=== PATIENT | female | born 1975 | race Caucasian/White ===

== ENCOUNTER → 2019-12-31 | Outpatient (CLI) | payer OTHER | LOC: RAD 07:54 | PROVIDERS: ATTEND Nurse Practitioner Family | DX: Z12.31 Encounter for screening mammogram for malignant neoplasm of breast (principal) | CPT/HCPCS: 77063; 77067 ==

== ENCOUNTER → 2020-01-24 | Outpatient (CLI) | payer OTHER ==
--- NOTE | 2020-01-24 10:51 | Diagnostic Imaging Report ---
EXAMINATION: Unilateral diagnostic right mammogram INDICATION: Annual screening mammogram. The recent screening mammogram performed on 12/31/2019 noted a density in the lower medial aspect of the right breast at mid depth. The compression views of this area show that the density in question is less conspicuous. Furthermore this finding is not well visualized on the true lateral view. I suspect that this density is related to fibroglandular tissue alone. Even so, I would recommend that ultrasound be performed for further study. IMPRESSION: Ultrasound would be recommended for further evaluation of the inferomedial aspect of the right breast. ACR BI-RADS Category 0: Incomplete. (Needs additional imaging evaluation). Result letter will be mailed to the patient. Note: At least 10% of breast cancer is not imaged by mammography. Dictated by: Dictated on workstation # [id number]
--- NOTE | 2020-01-24 11:03 | Diagnostic Imaging Report ---
EXAMINATION: Limited right breast ultrasound. INDICATION: Abnormal mammogram The screening mammogram performed on 12/31/2019 noted a neodensity in the lower medial aspect of the right breast. The diagnostic mammogram performed prior to this study failed to show any sign of malignancy. On this study there is no discrete solid or cystic mass evident. In the area of concern. I do suspect the density seen on mammogram was related to fibroglandular tissue alone. Even so, a short-term (6 month) follow-up mammogram would be recommended for continued evaluation. IMPRESSION: There is no evidence for malignancy. Recommendations as above. ACR BI-RADS Category 3: Probably benign findings. Dictated by: Dictated on workstation # [id number]
== END ==
LOC: RAD 09:29
PROVIDERS: ATTEND Nurse Practitioner Family
DX: R92.2 Inconclusive mammogram (principal)
CPT/HCPCS: 76642; 77065; G0279

== ENCOUNTER → 2020-05-09 | Outpatient (CLI) | payer OTHER ==
--- NOTE | 2020-05-09 15:29 | Diagnostic Imaging Report ---
PROCEDURE: CT head without contrast. TECHNIQUE: Multiple contiguous axial images were obtained through the brain without the use of intravenous contrast. Auto Exposure Controls were utilized during the CT exam to meet ALARA standards for radiation dose reduction. INDICATION: Dizziness. COMPARISON: No prior studies are available for comparison. FINDINGS: The ventricles and sulci are within normal limits. No sulcal effacement or midline shift is identified. No acute intra-axial or extra-axial hemorrhage is detected. Cisterns are patent. Visualized paranasal sinuses are clear. IMPRESSION: No acute intracranial process is detected. Dictated by: Dictated on workstation # [id number]
== END ==
LOC: RAD 14:45
PROVIDERS: ATTEND Nurse Practitioner Family
DX: G44.201 Tension-type headache, unspecified, intractable (principal)
CPT/HCPCS: 70450

== ENCOUNTER → 2020-07-21 | Outpatient (CLI) | payer OTHER ==
--- NOTE | 2020-07-21 14:13 | Diagnostic Imaging Report ---
INDICATION: Right breast density. Patient presents for a 6 month followup. COMPARISON: Correlation is made with the prior mammograms from 12/31/2019 and 02/23/2018. TECHNIQUE: Unilateral right 2-D and 3-D diagnostic mammography was performed. FINDINGS: The right breast remains heterogeneously dense, limiting sensitivity of mammography. The density in the medial right breast on the CC view appears stable. The density appears less prominent on the MLO and ML views inferiorly. No new mass is seen. No malignant appearing microcalcifications are seen. The right axilla is unremarkable. IMPRESSION: Stable right mammogram. The density in the medial right breast appears stable and again likely represents fibroglandular tissue. Even so, a followup right mammogram in 6 months is recommended to show continued stability. ACR BI-RADS Category 3: Probably benign findings. Result letter will be mailed to the patient. Note: At least 10% of breast cancer is not imaged by mammography. Dictated by: Dictated on workstation # [id number]
== END ==
LOC: RAD 13:20
PROVIDERS: ATTEND Nurse Practitioner Family
DX: R92.2 Inconclusive mammogram (principal)
CPT/HCPCS: 77065; G0279

== ENCOUNTER → 2020-09-10 | Outpatient (CLI) | payer OTHER ==
--- NOTE | 2020-09-10 17:12 | Diagnostic Imaging Report ---
PROCEDURE: MR imaging cervical spine without contrast. TECHNIQUE: Multiplanar, multisequence MR imaging of the cervical spine was performed without contrast. INDICATION: Neck pain. Right shoulder and arm pain and numbness. FINDINGS: There is mild straightening demonstrated of the cervical lordosis. Alignment appears normal. There are normal relationships of the craniocervical junction. There are normal relationships of the lateral masses of C1 and C2. Facets appear normally aligned. There is a benign hemangioma within T2. There are no marrow signal changes present to suggest an acute osseous injury or suspicious marrow-replacing lesion. Visualized intracranial contents are unremarkable. Note is made of a partially empty sella. There is no cord signal abnormality. There is no abnormal epidural process. At C2-C3, there is no significant canal or foraminal stenosis. At C3-C4, there is no significant canal or foraminal stenosis. At C4-C5, there is minimal spondylitic ridging and slight disc bulging. There is no significant canal or foraminal stenosis. At C5-C6, there is endplate ridging and small uncovertebral spurs. There is [id number] narrowing of both of the neuroforamen. There is mild narrowing of the central canal. At the C6-C7 level, there is disc bulging and endplate spurring as well as uncovertebral arthropathy, right greater than left. There is severe right and moderate left foraminal stenosis. There is mild narrowing of the central canal. At C7-T1, there is no significant canal or foraminal stenosis. The soft tissues of the neck demonstrate no acute process. The vascular flow voids are maintained. IMPRESSION: 1. Multilevel cervical degenerative disc disease. There is no acute osseous injury. Alignment is normal. There is straightening of the cervical lordosis. 2. No cord signal abnormality or abnormal epidural process. 3. Variable degrees of stenosis detailed above level by level. With regards to right neck pain, most significant findings are at the C6-C7 level where there is severe right-sided foraminal stenosis. Correlate for right C7 radiculopathy. 4. Other less significant degenerative features in the cervical spine are detailed level by level. Dictated by: Dictated on workstation # [id number]
== END ==
LOC: RAD 16:15
PROVIDERS: ATTEND Chiropractor
DX: M47.22 Other spondylosis with radiculopathy, cervical region (principal); M50.123 Cervical disc disorder at C6-C7 level with radiculopathy; M50.121 Cervical disc disorder at C4-C5 level with radiculopathy; M48.02 Spinal stenosis, cervical region; D18.09 Hemangioma of other sites; M40.50 Lordosis, unspecified, site unspecified
CPT/HCPCS: 72141

== ENCOUNTER → 2021-02-27 | Outpatient (CLI) | payer OTHER ==
--- NOTE | 2021-02-27 13:58 | Diagnostic Imaging Report ---
Indication: Six-month follow-up right breast density. Correlation is made with prior mammogram from 08/20/2019, 12/31/2019 as well as 02/23/2018. 2-D and 3-D bilateral diagnostic mammography was performed with CAD. Both breasts are heterogeneously dense, limiting the sensitivity of mammography. The area of nodular density in the medial right breast seen on prior exams appears less prominent on today's study and again most likely represents fibroglandular tissue. No mass or malignant-appearing microcalcifications are seen. The axillae are unremarkable. IMPRESSION: BI-RADS Category 1 No mammographic features suspicious for malignancy are identified. Patient may return to routine annual screening mammography. ACR BI-RADS Category 1: Negative. Result letter will be mailed to the patient. Note: At least 10% of breast cancer is not imaged by mammography. Dictated by: Dictated on workstation # [id number]
== END ==
LOC: RAD 13:15
PROVIDERS: ATTEND Nurse Practitioner Family
DX: Z12.31 Encounter for screening mammogram for malignant neoplasm of breast (principal); R92.8 Other abnormal and inconclusive findings on diagnostic imaging of breast
CPT/HCPCS: 77066; G0279; 77062

== ENCOUNTER 2023-03-28 19:18 | Emergency (ER) | payer BC, OTHER ==
[~2023-03-28] VITALS: Ht 154.9 cm; Wt 64.4 kg
[2023-03-28] MEDS ORDERED: PANTOPRAZOLE INJECTION 40 MG VIAL IV ONE (19:30)
[2023-03-28] MEDS ORDERED: ONDANSETRON INJECTION 4 MG/2 ML (SDV) IVP ONE (19:30)
[2023-03-28] MEDS ORDERED: fentaNYL INJECTION 100 MCG/2 ML VIAL IVP STA (19:30)
[2023-03-28] MEDS ORDERED: LACTATED RINGERS 1,000 ML 1,000 ML IV ONE (19:30)
[2023-03-28 19:35] LABS: BASOPHILS # (AUTO) 0.1 10^3/uL (0.0-0.1); BASOPHILS % (AUTO) 0 % (0-10); EOSINOPHILS # (AUTO) 0.2 10^3/uL (0.0-0.3); EOSINOPHILS % (AUTO) 1 % (0-10); HEMATOCRIT 42 % (35-52); HEMOGLOBIN 14.1 g/dL (11.5-16.0); LYMPHOCYTES # (AUTO) 2.8 10^3/uL (1.0-4.0); LYMPHOCYTES % (AUTO) 19 % (12-44); MEAN CORPUSCULAR HEMOGLOBIN 31 pg (25-34); MEAN CORPUSCULAR HGB CONC 33 g/dL (32-36); MEAN CORPUSCULAR VOLUME 94 fL (80-99); MEAN PLATELET VOLUME 9.4 fL (9.0-12.2); MONOCYTES # (AUTO) 0.9 10^3/uL (0.0-1.0); MONOCYTES % (AUTO) 6 % (0-12); NEUTROPHILS % (AUTO) 74 % (42-75); PLATELET COUNT 284 10^3/uL (130-400)
--- NOTE | 2023-03-28 19:36 | ED Abdominal Pain ---
General Chief Complaint: Abdominal/GI Problems Stated Complaint: ABD PAIN Nursing Triage Note: PT AMB TO RM 6 WITH CC OF UPPER ABD PAIN THAT RADIATES TO THE BACK, THAT STARTED TODAY AT 1200. PT STATES THAT SHE ATE AT 1300 AND HAD AN INCREASE IN PAIN. HX OF GASTRIC BYPASS IN 2019. Source of Information: Patient History of Present Illness Date Seen by Provider: Mar 28, 2023 Time Seen by Provider: 19:25 Initial Comments PT ARRIVES VIA POV FROM HOME WITH MOTHER C/O EPIGASTRIC PAIN THAT RADIATES THROUGH TO HER BACK SINCE NOON TODAY + NAUSEA, NO VOMITING. PT HAD BEEN CONSTIPATED BUT HAD BM LAST NIGHT AND 3 NORMAL BM'S TODAY. NO FEVER NO URINARY SYMPTOMS SHE ATE BREAKFAST AND WAS FINE SHE ATE LUNCH AT 1300 --POTATO CASSEROLE AND BRISQUET--AND PAIN GOT MUCH WORSE SHE HAS BEEN DRINKING WATER THIS AFTERNOON SHE TOOK PEPTO BISMOL X 2 WITHOUT RELIEF NO HISTORY OF SIMILAR PT HAD LAP BAND IN 2009, THEN HAD REVERSAL OF LAP BAND AND THEN HAD GHANSHYAM-EN-Y GASTRIC BYPASS SURGERY IN 2019 SHE HAS NOT HAD ANY OTHER ABDOMINAL SURGERIES NO HISTORY OF GI PROBLEMS PT HAD BEEN ON OZEMPIC FOR WEIGHT LOSS--NONE X 10 DAYS LMP 03/09/23. NORMAL . NO CONTROL PCP: DR. ASHBY, [facility] Allergies and Home Medications Allergies Coded Allergies: Sulfa (Sulfonamides) (Verified Allergy, Unknown, 08/28/09) Review of Systems Review of Systems Constitutional: no symptoms reported Respiratory: No Symptoms Reported Cardiovascular: No Symptoms Reported Gastrointestinal: See HPI, Abdominal Pain; Denies Diarrhea; Nausea; Denies Vomiting Genitourinary: No Symptoms Reported Musculoskeletal: see HPI, back pain Skin: no symptoms reported Psychiatric/Neurological: No Symptoms Reported Endocrine: No Symptoms Reported Hematologic/Lymphatic: No Symptoms Reported Past Cnnphio-Ioqvdu-Lrormu Hx Patient Social History Tobacco Use?: No Substance use?: No Alcohol Use?: No Past Medical History Surgeries: Yes Abdominal, Adenoidectomy, Orthopedic, Tonsillectomy Respiratory: No Cardiac: No Neurological: No Reproductive Disorders: No Genitourinary: No Gastrointestinal: Yes (LAP BAND THEN GASTRIC BYPASS) Musculoskeletal: No Endocrine: Yes (OBESITY) HEENT: Yes (S/P T&A) Tonsilitis Cancer: No Psychosocial: No Integumentary: No Blood Disorders: No Family Medical History SOCIAL HISTORY: -SMOKING--DENIES -ETOH--DENIES -DRUGS--DENIES PAST SURGICAL HISTORY: -TONSILLECTOMY/ADENOIDECTOMY -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 GRAJEDA -LAB BAND REVERSAL AND GHANSHYAM-EN-Y GASTRIC BYPASS [place] [address] SNOW IN [place]. Physical Exam Vital Signs Vital Signs - First Documented 03/28/23 19:25 Temp 37.5 Pulse 95 B/P (MAP) 142/92 (109) Pulse Ox 100 O2 Delivery Room Air Capillary Refill : Height/Weight/BMI Height: '" Weight: lbs. oz. kg; 26.00 BMI Method: General Appearance: WD/WN, no apparent distress, other (DOES NOT APPEAR TO BE IN ANY DISCOMFORT OR DISTRESS. WALKS UPRIGHT AND MOVES WITHOUT DIFFICULTY. 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, no motor/sensory deficits, alert, normal mood/affect, oriented x 3 Skin: normal color, warm/dry Progress/Results/Core Measures Results/Orders Lab Results Laboratory Tests Test 03/28/23 19:28 03/28/23 19:32 Range/Units White Blood Count 15.0 H 4.3-11.0 10^3/uL Red Blood Count 4.51 3.80-5.11 10^6/uL Hemoglobin 14.1 11.5-16.0 g/dL Hematocrit 42 35-52 % Mean Corpuscular Volume 94 80-99 fL Mean Corpuscular Hemoglobin 31 25-34 pg Mean Corpuscular Hemoglobin Concent 33 32-36 g/dL Red Cell Distribution Width 12.4 10.0-14.5 % Platelet Count 284 130-400 10^3/uL Mean Platelet Volume 9.4 9.0-12.2 fL Immature Granulocyte % (Auto) 0 % Neutrophils (%) (Auto) 74 42-75 % Lymphocytes (%) (Auto) 19 12-44 % Monocytes (%) (Auto) 6 0-12 % Eosinophils (%) (Auto) 1 0-10 % Basophils (%) (Auto) 0 0-10 % Neutrophils # (Auto) 11.0 H 1.8-7.8 10^3/uL Lymphocytes # (Auto) 2.8 1.0-4.0 10^3/uL Monocytes # (Auto) 0.9 0.0-1.0 10^3/uL Eosinophils # (Auto) 0.2 0.0-0.3 10^3/uL Basophils # (Auto) 0.1 0.0-0.1 10^3/uL Immature Granulocyte # (Auto) 0.1 0.0-0.1 10^3/uL Neutrophils % (Manual) 74 % Lymphocytes % (Manual) 18 % Monocytes % (Manual) 5 % Eosinophils % (Manual) 1 % Band Neutrophils 2 % Platelet Estimate ADEQUATE Blood Morphology Comment NORMAL Erythrocyte Sedimentation Rate 9 0-20 MM/HR Sodium Level 137 135-145 MMOL/L Potassium Level 3.9 3.6-5.0 MMOL/L Chloride Level 105 98-107 MMOL/L Carbon Dioxide Level 22 21-32 MMOL/L Anion Gap 10 5-14 MMOL/L Blood Urea Nitrogen 11 7-18 MG/DL Creatinine 0.84 0.60-1.30 MG/DL Estimat Glomerular Filtration Rate 87 BUN/Creatinine Ratio 13 Glucose Level 99 70-105 MG/DL Calcium Level 9.2 8.5-10.1 MG/DL Corrected Calcium 9.0 8.5-10.1 MG/DL Magnesium Level 2.1 1.6-2.4 MG/DL Total Bilirubin 0.3 0.1-1.0 MG/DL Aspartate Amino Transf (AST/SGOT) 15 5-34 U/L Alanine Aminotransferase (ALT/SGPT) 14 0-55 U/L Alkaline Phosphatase 56 40-136 U/L C-Reactive Protein High Sensitivity 0.04 0.00-0.50 MG/DL Total Protein 8.0 6.4-8.2 GM/DL Albumin 4.3 3.2-4.5 GM/DL Amylase Level 33 25-125 U/L Lipase 21 8-78 U/L Serum Test, Qualitative NEGATIVE NEGATIVE Urine Color YELLOW Urine Clarity SLIGHTLY CLOUDY Urine pH 5.5 5-9 Urine Specific [place] >=1.030 1.016-1.022 Urine Protein NEGATIVE NEGATIVE Urine Glucose (UA) NEGATIVE NEGATIVE Urine Ketones 2+ H NEGATIVE Urine Nitrite NEGATIVE NEGATIVE Urine Bilirubin NEGATIVE NEGATIVE Urine Urobilinogen 0.2 < = 1.0 MG/DL Urine Leukocyte Esterase 1+ H NEGATIVE Urine RBC (Auto) TRACE H NEGATIVE Urine RBC 0-2 /HPF Urine WBC 5-10 H /HPF Urine Squamous Epithelial Cells 5-10 /HPF Urine Crystals NONE /LPF Urine Bacteria FEW H /HPF Urine Casts NONE /LPF Urine Mucus SMALL H /LPF Urine Culture Indicated YES My Orders Orders - MARCELLO GONZALEZ DO Ed Iv/Invasive Line Start (03/28/23 19:25) Amylase (03/28/23 19:25) Cbc With Automated Diff (03/28/23 19:25) Comprehensive Metabolic Panel (03/28/23 19:25) Hs C Reactive Protein (03/28/23 19:25) Lipase (03/28/23 19:25) Ua Culture If Indicated (03/28/23 19:25) Erythrocyte Sedimentation Rate (03/28/23 19:25) Hcg,Qualitative Serum (03/28/23 19:30) Magnesium (03/28/23 19:30) Ed Iv/Invasive Line Start (03/28/23 19:30) Lactated Ringers 1,000 Ml (Lactated Ring (03/28/23 19:30) Ondansetron Injection (Ondansetron Inj (03/28/23 19:30) Ct Abdomen/Pelvis W (03/28/23 19:30) Fentanyl Injection (Fentanyl Injection (03/28/23 19:30) Pantoprazole Injection (Pantoprazole Inj (03/28/23 19:30) Manual Differential (03/28/23 19:28) Urine Culture (03/28/23 19:32) Iohexol Injection (Omnipaque 350 Mg/Ml 1 (03/28/23 20:15) Received Contrast (Hold Metformin- Contr (03/28/23 20:15) Ns (Ivpb) 100 Ml (Sodium Chloride 0.9% 1 (03/28/23 20:15) Rocephin 1gm/50 Ml Iv (1xdose) (03/28/23 20:45) Fentanyl Injection (Fentanyl Injection (03/28/23 20:45) Medications Given in ED Current Medications Medications Dose Ordered Sig/Leonor Route Start Time Stop Time Status Last Admin Dose Admin Iohexol 100 ml ONCE ONCE IV 03/28/23 20:15 03/28/23 20:16 DC 03/28/23 20:21 73 ML Lactated Ringer's 1,000 ml @ 0 mls/hr Q0M ONCE IV 03/28/23 19:30 03/28/23 19:33 DC 03/28/23 19:43 999 MLS/HR Ondansetron HCl 4 mg ONCE ONCE IVP 03/28/23 19:30 03/28/23 19:33 DC 03/28/23 19:42 4 MG Pantoprazole 80 mg ONCE ONCE IV 03/28/23 19:30 03/28/23 19:33 DC 03/28/23 19:42 80 MG Sodium Chloride 100 ml ONCE ONCE IV 03/28/23 20:15 03/28/23 20:16 DC 03/28/23 20:22 80 ML Vital Signs/I&O 03/28/23 19:25 Temp 37.5 Pulse 95 B/P (MAP) 142/92 (109) Pulse Ox 100 O2 Delivery Room Air Blood Pressure Mean: 109 Progress Progress Note : Progress Note VITALS ON ARRIVAL: TEMP 37.5=99.5, HR 95, RR 17, BP 142/92, O2 SAT 100% ON ROOM AIR GIVEN: -IV FLUIDS -ZOFRAN -PRONTONIX -FENTANYL LABS: -CBC WITH WBC 15.0, HGB 14.1, PLT 284,000 -CMP NORMAL -AMYLASE/LIPASE NORMAL -MG 2.1 -SED RATE 9, CRP 0.04 -HCG NEGATIVE -UA WITH 2+ KETONES, 1+ LEUKOCYTES, 5-10 WBC, FEW BACTERIA. URINE CULTURE PENDING CT ABDOMEN/PELVIS IS UNREMARKABLE Diagnostic Imaging Comments CT ABDOMEN/PELVIS--PER RADIOLOGIST REPORT AT 2036 FINDINGS: Limited views of the lower thorax are unremarkable. The liver is normal without focal lesion. There is no biliary ductal dilation. Gallbladder is normal. Pancreas is normal. Spleen is normal. Adrenal glands are normal. The kidneys are normal. There is no hydronephrosis. Urinary bladder is normal. Bowel is normal in caliber without obstruction or inflammation. There has been a gastric bypass. No free fluid or air. No abdominal or pelvic lymphadenopathy. Aorta is normal in caliber without aneurysm. There are no suspicious osseus lesions. IMPRESSION: 1. No acute abnormality in the abdomen or pelvis. Reviewed: Reviewed by Me Departure Impression Primary Impression: Upper abdominal pain Additional Impression: UTI (urinary tract infection) Disposition: HOME, SELF-CARE Condition: Improved Departure-Patient Inst. Decision time for Depature: 20:40 Referrals: [facility] [place] (PCP/Family) Primary Care Physician RIVERA GRAJEDA MD Patient Instructions: Urinary Tract Infection, Adult ED, Abdominal Pain, Adult ED Add. Discharge Instructions: CLEAR LIQUIDS--WATER, BROTH, JELLO, GATORADE TOMORROW IF YOU ARE BETTER, ADD BRATS DIET TO CLEAR LIQUIDS--BANANAS, RICE, APPLESAUCE, TOAST, SALTINES FOLLOW UP WITH DR. GRAJEDA THIS WEEK FOR FURTHER CARE, RETURN TO ER IF SYMPTOMS WORSEN All discharge instructions reviewed with patient and/or family. Voiced understanding. Scripts Tramadol HCl (Tramadol HCl) 50 Mg Tablet 50 MG PO Q4H for Pain, #10 TAB Prov: MARCELLO GONZALEZ DO 03/28/23 Cefdinir (Cefdinir) 300 Mg Capsule 300 MG PO BID, #20 CAP Prov: ANGEL LUIS GONZALEZA K DO 03/28/23 Ondansetron (Ondansetron Odt) 4 Mg Tab.rapdis 4 MG PO Q4H for Nausea/Vomiting, #10 TAB Prov: MARCELLO GONZALEZ K DO 03/28/23 Pantoprazole Sodium (Protonix) 40 Mg Tablet. 40 MG PO DAILY, #15 TAB Prov: LISAMARCELLO K DO 03/28/23 LISAMARCELLO K DO Mar 28, 2023 19:36
[2023-03-28 19:53] LABS: BACTERIA,URINE FEW /HPF; BILIRUBIN,URINE NEGATIVE (NEGATIVE); CLARITY,URINE SLIGHTLY CLOUDY; COLOR,URINE YELLOW; GLUCOSE, URINE (UA) NEGATIVE (NEGATIVE); KETONES,URINE 2+ (NEGATIVE); LEUKOCYTE ESTERASE ,URINE 1+ (NEGATIVE); NITRITE,URINE NEGATIVE (NEGATIVE); PH,URINE 5.5 (5-9); PROTEIN,URINE NEGATIVE (NEGATIVE); RBC,URINE 0-2 /HPF
[2023-03-28 19:59] LABS: ALBUMIN 4.3 GM/DL (3.2-4.5); BILIRUBIN,TOTAL 0.3 MG/DL (0.1-1.0); CALCIUM 9.2 MG/DL (8.5-10.1); CREATININE SERUM 0.84 MG/DL (0.60-1.30); POTASSIUM 3.9 MMOL/L (3.6-5.0)
[2023-03-28 20:10] LABS: BAND NEUTROPHILS 2 %; EOSINOPHILS % (MANUAL) 1 %; ERYTHROCYTE SEDIMENTATION RATE 9 MM/HR (0-20); LYMPHOCYTES % (MANUAL) 18 %; MONOCYTES % (MANUAL) 5 %; NEUTROPHILS % (MANUAL) 74 %; PLATELET ESTIMATE ADEQUATE; RBC MORPH NORMAL
[2023-03-28] MEDS ORDERED: NS 100 ML (IVPB) BAG IV ONE (20:15)
[2023-03-28] MEDS ORDERED: IOHEXOL 350 MG/ML 100 ML (OMNIPAQUE 350) VIAL IV ONE (20:15)
[2023-03-28] MEDS ORDERED: HOLD METFORMIN - RECEIVED CONTRAST 20 ML VIAL IV SCH (20:15)
--- NOTE | 2023-03-28 20:34 | Diagnostic Imaging Report ---
EXAMINATION: CT abdomen and pelvis with intravenous contrast. TECHNIQUE: Multiple contiguous axial images were obtained through the abdomen and pelvis after the uneventful administration of intravenous contrast. All CT scans use one or more of the following dose optimizing techniques: automated exposure control, MA and/or KvP adjustment based on patient size and exam type or iterative reconstruction. HISTORY: Epigastric pain COMPARISON: None available. FINDINGS: Limited views of the lower thorax are unremarkable. The liver is normal without focal lesion. There is no biliary ductal dilation. Gallbladder is normal. Pancreas is normal. Spleen is normal. Adrenal glands are normal. The kidneys are normal. There is no hydronephrosis. Urinary bladder is normal. Bowel is normal in caliber without obstruction or inflammation. There has been a gastric bypass. No free fluid or air. No abdominal or pelvic lymphadenopathy. Aorta is normal in caliber without aneurysm. There are no suspicious osseus lesions. IMPRESSION: 1. No acute abnormality in the abdomen or pelvis. Dictated by: Dictated on workstation # [id number]
[2023-03-28] MEDS ORDERED: fentaNYL INJECTION 100 MCG/2 ML VIAL IVP ONE (20:45)
[2023-03-28] MEDS ORDERED: cefTRIAXone IV/IM 1,000 MG in NS (IVPB) 50 ML 50 ML IV ONE (20:45)
[2023-03-28] MEDS ORDERED: PANT40TA2 PO (20:46)
[2023-03-28] MEDS ORDERED: ONDA4TAB11 PO (20:46)
[2023-03-28] MEDS ORDERED: CEFD300C3 PO (20:46)
[2023-03-28] MEDS ORDERED: TRAM50TA3 PO (20:47)
[2023-03-28 21:33] VITALS: BP 129/88
== END 2023-03-28 21:33 | disposition home or self-care (01) ==
LOC: EDUNIT# 19:18 → ER 19:20
DX: N39.0 Urinary tract infection, site not specified (principal); Z98.84 Bariatric surgery status; Z68.26 Body mass index [BMI] 26.0-26.9, adult
CPT/HCPCS: 36415; 74177; 80053; 81000; 82150; 83690; 83735; 84703; 85007; 85027; 85652; 86141; 87088

== ENCOUNTER → 2023-04-08 | Outpatient (CLI) | payer BC ==
[~2023-04-08] MED LIST: CATHETER FLUSH 10 ML SYR IVP PRN; CEFD300C3 PO; ONDA4TAB11 PO; PANT40TA2 PO; TRAM50TA3 PO
--- NOTE | 2023-04-08 12:23 | Diagnostic Imaging Report ---
Reason for exam: Right upper quadrant pain. Comparison: 03/28/2023. Procedure: The patient was administered 5.25 millicuries of technetium 99m mebrofenin and 8 ounces of Ensure. A nuclear medicine hepatobiliary scan with ejection fraction was performed. Findings: There is prompt uptake and excretion of radiotracer by the liver. Activity is visible in the gallbladder by 15 minutes and the small bowel by 55 minutes. Ejection fraction of the gallbladder is calculated at 96% (normal >35%). The gallbladder visibly empties on the scans following the ingestion of Ensure Impression: Normal hepatobiliary scan with normal gallbladder ejection fraction. Dictated by: Dictated on workstation # [id number]
== END ==
LOC: CARD 09:46
PROVIDERS: ATTEND Surgery
DX: R10.11 Right upper quadrant pain (principal)
CPT/HCPCS: 78227; A9537